=== PATIENT | female | born 1970 | race Caucasian/White ===

== ENCOUNTER → 2016-10-30 | Day surgery (SDC) | payer OTHER ==
[~2016-10-30] MED LIST: KETOROLAC TROMETHAMINE 30 MG/ML (IVP) VIAL IV PUSH ONE; LACTATED RINGER'S 1000 ML INJ 1,000 ML ONE; MEPERIDINE HCL 25 MG/ML VIAL ONE; ONDANSETRON HCL 4 MG/2 ML VIAL IV PUSH ONE; ONDANSETRON HCL 4 MG/2 ML VIAL ONE; PROPOFOL 200 MG/20 ML AMP IV ONE; ceFAZolin INJ 1,000 MG VIAL ONE
--- NOTE | 2016-10-30 00:19 | HHI.HP ---
HPI Chief Complaint abnormal uterine bleeding, fibroids, thickened endometrial lining Travel History International Travel<30 Days: No Contact w/Intl Traveler<30Days: No Known Affected Area: No History of Present Illness HPI Patient has recently developed abnormal uterine bleeding. The gynecological work up revealed fibroids and a thickened endometrium. Despite medical treatment , the patient continues to bleed and her endometrial lining appears even thicker than prior to treatment. In addition, her Hgb has dropped from 14 to 12 and the patient has developed worsened fatigue. Para: 2 : 2 Miscarriage: 0 : 0 History Past Medical History Medical History: Denies Significant Hx Obstetric History Obstetric History Two pregnancies; 1 vaginal delivery, 1 delivery Past Surgical History Narrative Surgical 1999 -- section 1999 - tubal ligation 2015 -- cholecystectomy Family History Family History: Negative Social History Alcohol Use: No Tobacco Use: No (has h/o smoking 1/2 ppd for about 20 years) Substance Abuse: No Allergies-Medications (Allergen,Severity, Reaction): Coded Allergies: No Known Allergies (Unverified , 10/16/15) Home Meds No Active Prescriptions or Reported Meds Narrative Medication Diclofenac 75 mg PO QD Cyclobenzaprine 10 mg PO QD Review of Systems General / Constitutional: No: Fever, Weight Gain, Chills, Other Eyes: No: Diploplia, Blurred Vision, Visual changes, Pain, Photophobia HENT: No: Headaches, Vertigo, Lightheadedness Cardiovascular: No: Irregular Rhythm, Chest Pain or Discomfort, Palpitations, Tachycardia, Syncope, Varicosities, Edema, Cyanosis Respiratory: No: Cough, Short of Breath, Other Gastrointestinal: No: Nausea, Vomiting, Diarrhea Genitourinary: Pelvic Pain, Menorrhagia, Vaginal Bleeding, No: Decreased Urinary Output, Oliguria Musculoskeletal: No: Limited ROM, Weakness, Cramping, Edema, Pain Skin: No Rash, No Itching, No Dryness, No Lumps, No Change in Pigmentation, No Change in Nails, No Alopecia, No Lesions Neurologic: No: Weakness, Dizziness, Syncope, Focal Abnormalities, Coordination Problem, Headache, Slurred Speech, Seizures Psychiatric: No: Depression, Suicidal Ideations, Homicidal Ideation Endocrine: No: Heat Intolerance, Cold Intolerance, Polydipsia, Polyuria, Other Physical Exam Narrative GENERAL: Well-nourished, well-developed patient. SKIN: Warm and dry. HEAD: Normocephalic and atraumatic. EYES: No scleral icterus. No injection or drainage. ENT: No nasal drainage noted. Mucous membranes pink. Airway patent. NECK: Supple, trachea midline. No JVD. CARDIOVASCULAR: Regular rate and rhythm without murmurs, gallops, or rubs. RESPIRATORY: Breath sounds equal bilaterally. No accessory muscle use. BREASTS: Bilateral exam showed no masses , no retractions, no nipple discharge. ABDOMEN/GI: Abdomen soft, non-tender, bowel sounds present, no rebound, no guarding GENITOURINARY: External Genitalia: intact and normal in appearance Uterus: normal size, no adnexal masses, tender to deep palpation EXTREMITIES: No cyanosis or edema. BACK: Nontender without obvious deformity. No CVA tenderness. NEUROLOGICAL: Awake and alert. Motor and sensory grossly within normal limits. Five out of 5 muscle strength in all muscle groups. Normal speech. Data Data Vital Signs Reviewed: Yes Assessment/Plan Problem List: (1) DUB (dysfunctional uterine bleeding) (2) Excessive and frequent menstruation with regular cycle (3) Fibroids, intramural (4) Thickened endometrium Assessment and Plan 1. admit for hysteroscopy, D&C, endometrial ablation 2. discussed the R/B/A of the procedure: bleeding, infection, damage to internal organs if uterine perforation occurs (bowel, bladder, nerves, ureters, vessels) as well damage to vaginal rodney 3, discussed the possibility of needing for further surgery if the bleeding doesn't resolve 4. informed consent was obtained after patient's questions were answered Bhavya Cruz MD Oct 30, 2016 00:19
--- NOTE | 2016-10-30 10:45 | PD.OP ---
Operative Report Date of Surgery: Oct 30, 2016 Preoperative Diagnosis: (1) DUB (dysfunctional uterine bleeding) (2) Excessive and frequent menstruation with regular cycle (3) Fibroids, intramural (4) Thickened endometrium Postoperative Diagnosis: (1) DUB (dysfunctional uterine bleeding) (2) Excessive and frequent menstruation with regular cycle (3) Fibroids, intramural (4) Thickened endometrium Procedure: 1. hysteroscopy 2. D&C 3. endometrial ablation Anesthesia: General Surgeon: Bhavya Cruz Lead Javascript Engineer(s): Staff Operation and Findings: IVF: 700 ml LR + IV antibiotics given prior to surgery (fluid deficit 300 ml) UO: 20 ml EBL: < 25 ml Findings: normal uterine cavity Specimens: endometrial curettings + endometrial biopsies Complications: none Condition: stable Disposition: PACU Description of the procedure: The risks, benefits and alternatives of the procedure were discussed with the patient. Her questions were answered. The patient signed informed consent and wished to proceed. She was taken to the operating room with her IV running. She was placed in the supine position and was given general anesthesia without difficulties or complications. The patient was placed in the dorsal lithotomy position and was prepped and draped in the usual sterile fashion. A bivalve speculum was introduced inside the patient's vagina. The anterior aspect of the cervix was grasped with a single tooth tenaculum for manipulation. The cervix was carefully dilated; the uterus sounded to 10 cm and the cervix was measured to 4 cm. A 5 mm Myosure hysteroscope was introduced inside the patient's uterus. The cavity was noted to be within normal limits with several "irregular areas" where the fibroids were noted to push into the cavity. Several biopsies were obtained of the endometrium. A careful curettage was done with a sharp curet. The tissues were sent to pathology. Endometrial ablation was done following [employer] protocol without any difficulties or complications (settings: width 4.4 cm, length 6.0 cm , power 145). All the instruments were removed from the patient's uterus. A figure eight stitch was placed at the tenaculum site for hemostasis. All the instruments were removed from the patient's vagina. She tolerated the procedure well; she was successfully awaken from general anesthesia and was transferred to PACU in stable condition. Note: I discussed the surgical findings and surgical procedures with patient's . His questions were answered. He verbalized understanding and agreement to the procedures done. Bhavya Cruz MD Oct 30, 2016 10:45
== END | disposition home or self-care (01) ==
LOC: ESDC 08:17
PROVIDERS: ATTEND Obstetrics & Gynecology
DX: N93.8 Other specified abnormal uterine and vaginal bleeding (principal); N92.0 Excessive and frequent menstruation with regular cycle; D25.9 Leiomyoma of uterus, unspecified; R93.8 Abnormal findings on diagnostic imaging of other specified body structures
CPT/HCPCS: 00952; 58563; 88305; J0690; J1885; J2175; J2405; J3010; J7120